=== PATIENT | female | born 1975 | race Caucasian/White ===

== ENCOUNTER 2017-11-30 14:13 | Emergency (ER) | payer BC ==
[~2017-11-30] VITALS: Ht 172.7 cm; Wt 91.0 kg
[2017-11-30 14:18] VITALS: BP 176/115; PULSE 142; RESP 16; TEMP 98.6; O2SAT 65
--- NOTE | 2017-11-30 14:40 | PD ---
HPI Chief Complaint: Fever Time Seen by Provider: 14:23 Travel History International Travel<30 days: No Contact w/Intl Traveler<30days: No Traveled to known affect area: No History of Present Illness HPI Patient 42-year-old female presents emergency department for evaluation of fever to a T-max of 102 prior to arrival, the patient states she is a breast cancer patient visiting from out of town. Denies any cough congestion but does endorse abdominal pain. She states that she usually takes 4 mg of Dilaudid and Phenergan at home for her chronic pain. She states she is not currently on chemotherapy and has not been for some time. She states she is also supposed to be having surgery on her ear for local recurrence. Denies any dysuria nausea vomiting diarrhea as the patient blood in the urine rashes. States symptoms for the past day or so, abdomen, associated with fever, context as above. PFSH Past Medical History Narrative Medical Chemotherapy, breast cancer Chemotherapy: Yes (NOVEMBER 2012) Past Surgical History Narrative Surgical Hysterectomy, mastectomy. Social History Alcohol Use: Yes Tobacco Use: Yes Substance Use: No Allergies-Medications (Allergen,Severity, Reaction): Coded Allergies: linezolid (Verified Allergy, Severe, Anaphylaxis, 11/30/17) Sulfa (Sulfonamide Antibiotics) (Verified Allergy, Intermediate, Hives, ) Reported Meds & Prescriptions Reported Meds & Active Scripts Active Reported Klonopin (Clonazepam) 0.5 Mg Tab 0.5 Mg PO BID Dilaudid (Hydromorphone HCl) 4 Mg Tab 4 Mg PO Q4H PRN Gabapentin 600 Mg Tab 600 Mg PO TID Vyvanse (Lisdexamfetamine Dimesylate) 40 Mg Cap 40 Mg PO DAILY Viibryd (Vilazodone) 40 Mg Tab 40 Mg PO DAILY Review of Systems Except as stated in HPI: all other systems reviewed are Neg Physical Exam Narrative GENERAL: Well-developed well-nourished in minimal discomfort. SKIN: Focused skin assessment warm/dry. No rash seen HEAD: Atraumatic. Normocephalic. EYES: Pupils equal and round. No scleral icterus. No injection or drainage. ENT: No nasal bleeding or discharge. Mucous membranes pink and moist. TMs clear bilaterally, oropharynx clear moist NECK: Trachea midline. No JVD. CARDIOVASCULAR: Regular rhythm with tachycardia. No murmur appreciated. RESPIRATORY: No accessory muscle use. Clear to auscultation. Breath sounds equal bilaterally. GASTROINTESTINAL: Multiple surgical scars which she states is from cancer resection, abdomen tender in all 4 quadrants minimally so, there is no rebound no percussive tenderness no guarding and normal active bowel sounds. Abdomen soft, non-tender, nondistended. Hepatic and splenic margins not palpable. MUSCULOSKELETAL: No obvious deformities. No clubbing. No cyanosis. No edema. NEUROLOGICAL: Awake and alert. No obvious cranial nerve deficits. Motor grossly within normal limits. Normal speech. PSYCHIATRIC: Appropriate mood and affect; insight and judgment normal. Data Data Last Documented VS Vital Signs Date Time Temp Pulse Resp B/P (MAP) Pulse Ox O2 Delivery O2 Flow Rate FiO2 11/30/17 19:45 11/30/17 17:37 104 18 100 Room Air 11/30/17 14:18 98.6 Orders Orders Sepsis Workup Initiated (11/30/17 ) Complete Blood Count With Diff (11/30/17 14:23) Comprehensive Metabolic Panel (11/30/17 14:23) Prothrombin Time / Inr (Pt) (11/30/17 14:23) Act Partial Throm Time (Ptt) (11/30/17 14:23) Lactic Acid Sepsis Protocol (11/30/17 14:23) Magnesium (Mg) (11/30/17 14:23) Phosphorus (Po4) (11/30/17 14:23) Lipase (11/30/17 14:23) Ckmb (Isoenzyme) Profile (11/30/17 14:23) Troponin I (11/30/17 14:23) Urinalysis - C+S If Indicated (11/30/17 14:23) Blood Culture (11/30/17 14:23) Chest, Single Ap (11/30/17 14:23) Ecg Monitoring (11/30/17 14:23) Iv Access Insert/Monitor (11/30/17 14:23) Oximetry (11/30/17 14:23) Oxygen Administration (11/30/17 14:23) Ct Abd/Pel W Iv Contrast(Rout) (11/30/17 ) Sodium Chlor 0.9% 1000 Ml Inj (Ns 1000 M (11/30/17 15:30) Hydromorphone Pf Inj (Dilaudid Pf Inj) (11/30/17 16:30) Ondansetron Odt (Zofran Odt) (11/30/17 16:30) Iohexol 350 Inj (Omnipaque 350 Inj) (11/30/17 18:17) Hydromorphone (Dilaudid) (11/30/17 18:30) Hydromorphone Pf Inj (Dilaudid Pf Inj) (11/30/17 19:30) Ed Discharge Order (11/30/17 19:16) Promethazine (Phenergan) (11/30/17 19:30) Heparin Central Flush (Heparin Central F (11/30/17 20:00) Labs Laboratory Tests Test 11/30/17 15:36 11/30/17 18:21 White Blood Count 5.6 TH/MM3 Red Blood Count 3.28 MIL/MM3 Hemoglobin 8.8 GM/DL Hematocrit 26.8 % Mean Corpuscular Volume 81.6 FL Mean Corpuscular Hemoglobin 26.9 PG Mean Corpuscular Hemoglobin Concent 32.9 % Red Cell Distribution Width 18.8 % Platelet Count 214 TH/MM3 Mean Platelet Volume 8.9 FL Neutrophils (%) (Auto) 66.7 % Lymphocytes (%) (Auto) 22.8 % Monocytes (%) (Auto) 8.0 % Eosinophils (%) (Auto) 1.3 % Basophils (%) (Auto) 1.2 % Neutrophils # (Auto) 3.8 TH/MM3 Lymphocytes # (Auto) 1.3 TH/MM3 Monocytes # (Auto) 0.4 TH/MM3 Eosinophils # (Auto) 0.1 TH/MM3 Basophils # (Auto) 0.1 TH/MM3 CBC Comment DIFF FINAL Differential Comment Prothrombin Time 10.0 SEC Prothromb Time International Ratio 1.0 RATIO Activated Partial Thromboplast Time 21.9 SEC Blood Urea Nitrogen 15 MG/DL Creatinine 0.74 MG/DL Random Glucose 97 MG/DL Total Protein 6.3 GM/DL Albumin 3.2 GM/DL Calcium Level 8.8 MG/DL Phosphorus Level 3.0 MG/DL Magnesium Level 2.0 MG/DL Alkaline Phosphatase 84 U/L Aspartate Amino Transf (AST/SGOT) 14 U/L Alanine Aminotransferase (ALT/SGPT) 19 U/L Total Bilirubin 0.2 MG/DL Sodium Level 143 MEQ/L Potassium Level 3.8 MEQ/L Chloride Level 108 MEQ/L Carbon Dioxide Level 24.2 MEQ/L Anion Gap 11 MEQ/L Estimat Glomerular Filtration Rate 86 ML/MIN Lactic Acid Level 0.7 mmol/L Total Creatine Kinase 42 U/L Troponin I LESS THAN 0.02 NG/ML Lipase 94 U/L Urine Color YELLOW Urine Turbidity CLEAR Urine pH 6.0 Urine Specific [place] 1.025 Urine Protein NEG mg/dL Urine Glucose (UA) NEG mg/dL Urine Ketones NEG mg/dL Urine Occult Blood SMALL Urine Nitrite NEG Urine Bilirubin NEG Urine Urobilinogen LESS THAN 2 mg/dL Urine Leukocyte Esterase NEG Urine RBC 2 /hpf Urine WBC LESS THAN 1 /hpf Urine Hyaline Casts 3 /lpf Urine Mucus FEW /lpf Microscopic Urinalysis Comment CATH-CULT NOT IND MDM Medical Decision Making Medical Screen Exam Complete: Yes Emergency Medical Condition: Yes Differential Diagnosis Sepsis, UTI, pneumonia, intra-abdominal infection peer Narrative Course Patient room to the emergency department, history of breast cancer recurrences to the right yarsani and left hip per her history. Patient visiting from out of town usually takes Dilaudid 4 mg tablets at home. She is requesting pain medicine and nausea medicine. Dilaudid 1 mg IV and Zofran ordered, appears much more comfortable, tachycardia resolved, CT abdomen negative, UA chest x- ray negative. Nursing had approach me during the workup the patient stating that she was still having pain and requests additional pain medication. Dilaudid 4 mg p.o. was ordered the patient refused this. After the workup at [facility][1] the patient she still saying she was having pain and requested additional Dilaudid IV. I have ordered an additional 1 mg dose and Phenergan p.o. she requested this by name as well. She appears quite comfortable I do not appreciate any life-threatening infection lab abnormality or intra- abdominal process. At this time she is stable for discharge. Discussed need follow-up with her oncologist and she states she is going home Saturday and follows up Saturday. Discussed return to ED criteria. Diagnosis Primary Impression: Abdominal pain Disposition: 01 DISCHARGE HOME Condition: Stable Bjorn Bennett MD Nov 30, 2017 14:40
[2017-11-30 14:46] VITALS: PULSE 126; RESP 18; O2SAT 99
[2017-11-30] MEDS ORDERED: LISD40 PO (14:48)
[2017-11-30] MEDS ORDERED: CLON.5 PO (14:48)
[2017-11-30] MEDS ORDERED: VIIB40TA PO (14:48)
[2017-11-30] MEDS ORDERED: GABA600T PO (14:48)
[2017-11-30] MEDS ORDERED: DILA4TAB10 PO (14:48)
--- NOTE | 2017-11-30 14:52 | RADRPT ---
EXAM DATE: 11/30/2017 2:46 PM EDT AGE/SEX: 42 years / Female INDICATIONS: Shortness of breath and chest pain. CLINICAL DATA: This is the patient's initial encounter. Patient reports that signs and symptoms have been present for 2 days and indicates a pain score of 4/10. MEDICAL/SURGICAL HISTORY: Carcinoma, breast. . Bilateral mastectomy. COMPARISON: No prior exams available for comparison. FINDINGS: A single AP view of the chest demonstrates the lungs to be symmetrically aerated without evidence of mass, infiltrate or effusion. Left-sided port with tip in the cavoatrial junction. The cardiomediast inal contours are unremarkable. Osseous structures are intact. CONCLUSION: No acute cardiopulmonary disease Electronically signed by: Austin Gibbs MD 11/30/2017 2:51 PM EDT
[2017-11-30] MEDS ORDERED: SODIUM CHLOR 0.9% 1000 ML INJ 1,000 ML IV ONE (15:30)
[2017-11-30 16:09] LABS: AUTOMATED NEUTROPHIL # 3.8 TH/MM3 (1.8-7.7); BASOPHIL # 0.1 TH/MM3 (0-0.2); BASOPHIL % 1.2 % (0.0-2.0); EOSINOPHIL # 0.1 TH/MM3 (0-0.4); EOSINOPHIL % 1.3 % (0.0-4.0); HEMATOCRIT 26.8 % (35.0-46.0); HEMOGLOBIN 8.8 GM/DL (11.6-15.3); LYMPH % 22.8 % (9.0-44.0); LYMPHOCYTE # 1.3 TH/MM3 (1.0-4.8); MEAN CELL VOLUME 81.6 FL (80.0-100.0); MEAN CORPUSCULAR HEMOGLOBIN 26.9 PG (27.0-34.0); MEAN CORPUSCULAR HGB CONC 32.9 % (32.0-36.0); MEAN PLATELET VOLUME 8.9 FL (7.0-11.0); MONOCYTE # 0.4 TH/MM3 (0-0.9); NEUT % 66.7 % (16.0-70.0); PLATELET COUNT 214 TH/MM3 (150-450); RED BLOOD COUNT 3.28 MIL/MM3 (4.00-5.30); RED CELL DISTRIBUTION WIDTH 18.8 % (11.6-17.2); WHITE BLOOD COUNT 5.6 TH/MM3 (4.0-11.0)
[2017-11-30 16:13] LABS: ALBUMIN 3.2 GM/DL (3.4-5.0); AST (GOT) 14 U/L (15-37); BICARBONATE 24.2 MEQ/L (21.0-32.0); BLOOD UREA NITROGEN 15 MG/DL (7-18); CALCIUM 8.8 MG/DL (8.5-10.1); CHLORIDE 108 MEQ/L (98-107); CREATININE 0.74 MG/DL (0.50-1.00); GLOMERULAR FILTRATION RATE 86 ML/MIN (>89); GLUCOSE,RANDOM 97 MG/DL (74-106); SODIUM (NA) 143 MEQ/L (136-145)
[2017-11-30 16:14] LABS: ALT (GPT) 19 U/L (10-53)
[2017-11-30 16:17] LABS: ALKALINE PHOSPHATASE 84 U/L (45-117); TOTAL BILIRUBIN ADULT 0.2 MG/DL (0.2-1.0); TOTAL PROTEIN 6.3 GM/DL (6.4-8.2); TROPONIN I LESS THAN 0.02 NG/ML (0.02-0.05)
[2017-11-30] MEDS ORDERED: ONDANSETRON ODT 4 MG TAB PO ONE (16:30)
[2017-11-30] MEDS ORDERED: HYDROmorphone HCL PF 2 MG/ML VIAL IV PUSH ONE ×2 (16:30→19:30)
[2017-11-30 17:37] VITALS: BP 176/84; PULSE 104; RESP 18; O2SAT 100
[2017-11-30] MEDS ORDERED: IOHEXOL 350 MG/ML 10 ML VIAL (for RAD DIAG) IVCONTRAST ONE (18:17)
[2017-11-30] MEDS ORDERED: HYDROmorphone HCL 4 MG TAB PO ONE (18:30)
--- NOTE | 2017-11-30 18:37 | RADRPT ---
EXAM DATE: 11/30/2017 6:16 PM EDT AGE/SEX: 42 years / Female INDICATIONS: Diffuse abdomen pain with nausea and vomiting today. CLINICAL DATA: This is the patient's initial encounter. Patient reports that signs and symptoms have been present for 1 day and indicates a pain score of 7/10. MEDICAL/SURGICAL HISTORY: Carcinoma, breast. Mastectomy, bilateral. ORAL CONTRAST: No oral contrast ingested. RADIATION DOSE: 12.05 CTDI (mGy) COMPARISON: No prior exams available for comparison. TECHNIQUE: Multiple contiguous axial images were obtained through the abdomen and pelvis following b olus infusion of 97 ml Omnipaque 350 (iohexol) nonionic water-soluble contrast as a single exam dos e. No oral contrast ingested. Using automated exposure control and adjustment of the mA and/or kV ac cording to patient size, radiation dose was kept as low as reasonably achievable to obtain optimal di agnostic quality images. DICOM format image data is available electronically for review and comparis on. FINDINGS: Lung bases are clear except for some linear atelectasis or scarring in the lingula and right middle l obe. Mild fatty liver. Previous cholecystectomy with bile duct measuring about 13 mm in diameter.. Spleen, adrenals, kidneys and pancreas unremarkable. No free fluid. No bowel obstruction. No adenopathy. Mild constipation. CONCLUSION: 1. No acute findings. Previous cholecystectomy without biliary ductal dilatation to 13 mm which can be seen postcholecystectomy. Electronically signed by: Fede Underwood MD 11/30/2017 6:36 PM EDT
[2017-11-30 18:44] LABS: BILIRUBIN, URINE NEG (NEG); BLOOD, URINE SMALL (NEG); GLUCOSE,URINE NEG (NEG); HYALINE CAST, URINE 3 /lpf (RARE); KETONE, URINE NEG (NEG); MUCUS URINE FEW /lpf (OCC); NITRITE,URINE NEG (NEG); URINE COLOR YELLOW (YELLW/STRAW); URINE LEUKOCYTE ESTERASE NEG (NEG)
[2017-11-30] MEDS ORDERED: PROMETHAZINE HCL 25 MG TAB PO ONE (19:30)
== END 2017-11-30 20:05 | disposition home or self-care (01) ==
LOC: NEPE 14:13
DX: C50.919 Malignant neoplasm of unspecified site of unspecified female breast (principal); R50.9 Fever, unspecified; R10.9 Unspecified abdominal pain; G89.29 Other chronic pain; R07.9 Chest pain, unspecified; R06.02 Shortness of breath; Z72.0 Tobacco use; Z79.899 Other long term (current) drug therapy
CPT/HCPCS: 71045; 74177; 80053; 81001; 82550; 83605; 83690; 83735; 84100; 84484; 85025; 85610; 85730; 87040; 96361; 96374; 96376; 99285; J1170; J1642; J7030; Q0169; Q9967